=== PATIENT | female | born 1945 ===

== ENCOUNTER → 2025-05-30 | Outpatient (CLI) | payer SELFPAY ==
[2025-05-30 10:53] LABS: Source, Urine Clean Catch
[2025-05-30 13:04] LABS: Bilirubin, Urine Neg (Neg); Glucose Qualitative, Urine Neg (Neg); Ketones, Urine Neg (Neg); Leukocyte Esterase, Urine 3+ (Neg); Protein, Urine 1+ (Neg); Specific Gravity, Urine 1.015 (1.003-1.022); Urobilinogen, Urine NORM (Normal)
[2025-05-30 13:51] LABS: Color, Urine Pale Yellow (P-Yellow)
[2025-05-30 13:55] LABS: Red Blood Cells, Urine 0-2 /hpf (0-2); White Blood Cells, Urine TNTC /hpf (0-5)
== END ==
LOC: LAB 08:35 → LAB SHORT 08:35
PROVIDERS: Physician Assistant Medical
DX: N39.0 Urinary tract infection, site not specified (principal)
CPT/HCPCS: 81001; 87077; 87086; 87147; 87186